=== PATIENT | male | born 1990 | race Caucasian/White ===

== ENCOUNTER 2017-02-19 19:16 | Emergency (ER) | payer SELFPAY ==
[~2017-02-19] VITALS: Ht 160 cm; Wt 75.0 kg
[2017-02-19 19:23] VITALS: BP 121/77
== END 2017-02-19 21:30 | disposition left against medical advice (07) ==
LOC: ER 20:28
DX: Z53.21 Procedure and treatment not carried out due to patient leaving prior to being seen by health care provider (principal)